=== PATIENT | female | born 1985 | race Two or more races ===

== ENCOUNTER 2024-04-08 08:26 | Emergency (ER) | payer MEDICAID ==
[~2024-04-08] VITALS: Ht 165.1 cm; Wt 78.2 kg
[2024-04-08 08:31] VITALS: BP 135/60; PULSE 82; RESP 18; TEMP 36.7; O2SAT 98
[2024-04-08] MEDS ORDERED: IBUPROFEN 600MG TABLET PO ONE (09:00)
[2024-04-08] MEDS: IBUPROFEN 600MG TABLET PO NR (10:41)
== END 2024-04-08 10:02 | disposition home or self-care (01) ==
LOC: ER 08:37
DX: S52.502A Unspecified fracture of the lower end of left radius, initial encounter for closed fracture (principal); Z98.890 Other specified postprocedural states; Z90.49 Acquired absence of other specified parts of digestive tract; W18.11XA Fall from or off toilet without subsequent striking against object, initial encounter; Y93.89 Activity, other specified; Y92.89 Other specified places as the place of occurrence of the external cause; Y99.8 Other external cause status
CPT/HCPCS: 29130; 73130; 99283